=== PATIENT | female | born 1955 | race Caucasian/White ===

== ENCOUNTER 2024-05-21 18:18 | Emergency (ER) | payer MEDICARE, MEDICAID, SELFPAY ==
[2024-05-21 18:19] VITALS: BMI 24.0
[2024-05-21 18:35] VITALS: BP 169/97; PULSE 72; RESP 20; TEMP 36.6; O2SAT 95
--- NOTE | 2024-05-21 18:45 | EKG_ITS ---
[facility] Test Date: 2024-05-21 Pat Name: FORTUNATO MONROY Department: Room: - Gender: Female [employer] Change [employer]erks Supervisor: : [id number] Requested By: Jaun Girard Order Number: [id number] Reading MD: Jaun Girard Measurements Intervals [place] Rate: 68 P: 81 [place]: 140 QRS: -24 QRSD: 94 T: 60 QT: 399 QTc: 425 Interpretive Statements SINUS RHYTHM BORDERLINE LEFT AXIS DEVIATION [QRS AXIS < -20] No previous ECG available for comparison /[email or web address]/[id number]
--- NOTE | 2024-05-21 18:45 | XR_ITS ---
Examination: CT abdomen with intravenous contrast CT pelvis with intravenous contrast 2-D coronal reconstructions 2-D sagittal reconstructions Date and time of exam:May 21, 20242002 hrs. Comparison May 25, 2023 Indications: Onset right-sided abdominal pain nausea vomiting beginning 2 weeks ago, history kidney stones. CTDI: vol (mGy) 10.6 DLP: (mGycm) 559 Technique: Multiple axial sections of the abdomen and pelvis have been obtained. 64 slice high-resolution scanner used. 3 mm axial sections have been obtained, post intravenous injection 60 cc [id number] 2-D sagittal, coronal reconstructions obtained. Low dose protocols were performed. One or more of the following dose reduction techniques were used; automated exposure control, adjustment of the mA and/or KV according to patient size, use of iterative reconstruction technique. Findings: No focal liver or splenic lesions No gallstones Pancreas is not enlarged Moderate right hydronephrosis secondary to 12 mm right ureteropelvic junction calculus Aorta normal size No bowel obstruction Normal appendix No diverticulitis Atrophic uterus No bladder calculi Total right hip arthroplasty Impression: Moderate right hydronephrosis secondary to 12 mm right ureteropelvic junction calculus
--- NOTE | 2024-05-21 18:47 | PD.EDRME ---
Rapid Medical Screening Exam RME Arrival date/time: 05/21/24 18:18 69-year-old female reports with complaints of abdominal pain that radiates to her back x 2 weeks Chief Complaint: Abdominal Pain Time Seen by Provider: 05/21/24 18:24 Vital signs: Vital Signs Temperature 97.8 F 05/21/24 18:35 Pulse Rate 72 05/21/24 18:35 Respiratory Rate 20 05/21/24 18:35 Blood Pressure 169/97 H 05/21/24 18:35 Pulse Oximetry (%) 95 05/21/24 18:35 Oxygen Delivery Method Room Air 05/21/24 18:35
[2024-05-21 19:36] LABS: Basophils % (Auto) 0 % (0-2.5); Eosinophils % (Auto) 0 % (0-10); Hematocrit 43.3 % (36.0-46.0); Hemoglobin 14.2 g/dL (12.0-16.0); Immature Granulocytes % (Auto) 0 % (0-0); Immature Granulocytes Auto 0.06 Thou/mm3 (0.00-0.00); Lymphocytes # (Auto) 1.3 Thou/mm3 (1.0-4.8); Lymphocytes % (Auto) 9 % (10-50); Mean Corpuscular HGB Conc 32.8 g/dl (31.0-37.0); Mean Corpuscular Hemoglobin 27.2 pg (25.0-35.0); Mean Corpuscular Volume 83 fL (80-100); Monocytes # (Auto) 0.5 Thou/mm3 (0.0-0.8); Monocytes % (Auto) 4 % (0-12); Neutrophils # (Auto) 11.7 Thou/mm3 (1.8-7.7); Neutrophils % (Auto) 86 % (37-80); Nucleated Red Blood Cell % 0 /100 WBC (0); Platelet Count 327 Thou/mm3 (140-440); Red Blood Count 5.23 Miln/mm3 (4.00-5.20); White Blood Count 13.6 Thou/mm3 (3.6-11.0)
[2024-05-21 19:48] LABS: Beta Hydroxybutyrate 0.4 mmol/L (<0.6)
--- NOTE | 2024-05-21 19:54 | PD.EDADULT ---
ED General RME/HPI General Chief complaint: Abdominal Pain Stated complaint: RIGHT ABD PAIN, VOMITING Time Seen by Provider: 05/21/24 18:24 Arrival date/time: 05/21/24 18:18 CC: Nausea vomiting abdominal pain HPI ongoing intermittent for the past 2 weeks worse in the past 24 hours. Patient states she is a diabetic does not monitor her blood sugars because the doctor never told me to patient denies any diarrhea chest pain or shortness of breath. Abdominal pain is an 8 on a 10 scale radiates into her back no prior history of similar events. she is unable to recall all the medications she takes. RME / HPI RME / HPI narrative: 05/21/24 18:18 69-year-old female reports with complaints of abdominal pain that radiates to her back x 2 weeks Related Data Allergies Allergy/AdvReac Type Severity Reaction Status Date / Time No Known Allergies Allergy Verified 05/21/24 18:19 Review of Systems Review of Systems Narrative Review of Systems: GEN: No fever, no chills, no weight loss EYES: No discharge, no visual changes, no pain HEENT: No ear pain, no congestion, no sore throat PULM: No shortness of breath, no cough, no congestion CV: No chest pain, no dyspnea on exertion, no palpitations GI: + nausea, + vomiting, no diarrhea, + pain, no constipation : No frequency, no urgency, no dysuria MUSC/SKEL: No joint pain, no back pain SKIN: No rash PSYCH: No hallucinations, no depression HEME/LYMPH: No easy bleeding or bruising tendencies NEURO: No weakness, no headache Past Medical History Past Medical History NEUROLOGIC: Negative Seizures CARDIAC: Positive Hypercholesterolemia; Negative Cardiac Disorders or Congestive Heart Failure RESPIRATORY: Negative Chronic Obstructive Pulmonary Disease (COPD) or Asthma GENITOURINARY: Negative Renal Disease MUSCULOSKELETAL: Positive Arthritis and Fibromyalgia ENDOCRINE: Positive Diabetes Mellitus Type 2; Negative Diabetes Mellitus Type 1 HEMATOLOGIC: Negative Sickle Cell Disease PSYCHO/SOCIAL: Positive Depression and Post Traumatic Stress Disorder OTHER HISTORY: Negative Blood Transfusions, Blood Transfusion Reaction or Anesthesia Reactions Surgical History SURGICAL: Positive Tonsillectomy Social History SMOKING STATUS: Never smoker ED Exam Narrative Physical exam: [General: Obese in mild discomfort but not in any acute distress Head normocephalic HEENT: Within acceptable limits Neck is supple nontender Chest equal chest rise nontender to palpation Respiratory: Clear to auscultation no wheezes crackles or rubs CV: Rate rhythm is regular no murmurs rubs or clicks Abdomen is distended secondary to body habitus soft diffuse tenderness throughout no rebound tenderness no reflexive guarding. Back: Left CVA tenderness no right CVA tenderness, no spinous process tenderness from cervical spine thoracic and lumbar spine Skin: Intact no petechiae rash induration ulceration or crepitus Extremities: Moving all extremity against resistance cap refill less than 2 seconds neurosensory intact Neuro: Awake alert oriented x3 Glascow coma 15 no focal deficits] Course Course Course Narrative: Patient case presented to Dr. Whitney at [facility], the urologist, agrees to accept the patient for admission. Patient is in agreement with the transfer. Quality Measures none Orders Category Date Time Status CT Screening NOW Care 05/21/24 18:45 Active EKG (ED ONLY) *Do not use* NOW Care 05/21/24 18:[address] abdomen pelvis w con Stat Exams 05/21/24 18:45 Completed EKG (ED Only) Stat Exams 05/21/24 18:45 Draft Beta Hydroxybutyrate Stat Lab 05/21/24 19:14 Completed CBC Stat Lab 05/21/24 19:14 Completed CMP [Comprehensive Metabolic Panel] Stat Lab 05/21/24 19:14 Completed Lipase Stat Lab 05/21/24 19:14 Completed UA, C/S IF [Urinalysis, C/S if Indicated] Stat Lab 05/21/24 20:30 Completed Ketorolac Inj [Toradol Inj] Med 05/21/24 21:33 Discontinued 30 mg IVP X1 ONE Morphine Inj Med 05/21/24 18:45 Discontinued 2 mg IVP X1 ONE Morphine Inj Med 05/21/24 21:34 Discontinued 4 mg IVP X1 ONE Ondansetron Inj [Zofran Inj] Med 05/21/24 18:45 Discontinued 4 mg IV X1 ONE Sodium Chloride 0.9% 1000 ml [Ns] 1,000 ml Med 05/21/24 19:50 Active IV 125 mls/hr Sodium Chloride 0.9% 1000 ml [Ns] 1,000 ml Med 05/21/24 19:50 Discontinued IV 999 mls/hr Vital Signs Vital signs: Vital Signs Temperature 97.8 F 05/21/24 18:35 Pulse Rate 72 05/21/24 18:35 Respiratory Rate 20 05/21/24 18:35 Blood Pressure 169/97 H 05/21/24 18:35 Pulse Oximetry (%) 95 05/21/24 18:35 Oxygen Delivery Method Room Air 05/21/24 18:35 [facility] Patient data External records reviewed:: [facility] previous records Clinical information provided by:: patient Social determinants that could affect healthcare access:: none Patient has the following chronic illnesses:: Diabetes hypertension hyperlipidemia How is presenting disease/condition affected by chronic disease/condition?: exacerbated by Evaluation data The following diagnostics were reviewed and interpreted by me:: lab results, radiology exam(s) and EKG tracing(s) Lab and/or radiology exams considered but not ordered:: EKG performed at 1853 shows a ventricular rate of 68 NH interval 140 QRS of 94 QTc of 416 is normal sinus rhythm left axis deviation baseline wander. CBC shows a leukocytosis of 13.5 no anemia thrombocytopenia CMP shows no acute electrolyte imbalances renal impairment transaminitis or T. bili elevation CT of the abdomen pelvis showed the patient has a 1.2 cm urolithiasis at the ureteropelvic junction with moderate hydro nephrosis Interpretation Summary: Hydroureter hydronephrosis urolithiasis Medications Medications considered but not ordered:: None Medication administrations:: Medication Administration History Sodium Chloride (Ns) 1,000 mls @ 125 mls/hr IV .Q8H VIET Stop: 06/20/24 19:49 Last Admin: 05/21/24 20:17 Dose: 125 mls/hr Documented By: MELANIE Discontinued Medications Sodium Chloride (Ns) 1,000 mls @ 999 mls/hr IV .Q1H1M ONE Stop: 05/21/24 20:50 Last Infusion: 05/21/24 21:15 Dose: Infused Documented By: Admin: 05/21/24 20:15 Dose: 999 mls/hr Documented By: MELANIE Ketorolac Tromethamine (Ketorolac Inj 30 Mg/Ml Vial) 30 mg IVP X1 ONE Stop: 05/21/24 21:34 Last Admin: 05/21/24 21:42 Dose: 30 mg Documented By: MELANIE Morphine Sulfate (Morphine Sulf Inj 10 Mg/Ml Vial) 2 mg IVP X1 ONE Stop: 05/21/24 18:46 Last Admin: 05/21/24 20:16 Dose: 2 mg Documented By: MELANIE Morphine Sulfate (Morphine Sulf Inj 10 Mg/Ml Vial) 4 mg IVP X1 ONE Stop: 05/21/24 21:35 Last Admin: 05/21/24 21:43 Dose: 4 mg Documented By: MELANIE Ondansetron HCl (Ondansetron Inj 2 Mg/Ml Inj 2 Ml) 4 mg IV X1 ONE; Protocol Stop: 05/21/24 18:46 Last Admin: 05/21/24 20:16 Dose: 4 mg Documented By: MELANIE None Consultations Consultation(s) initiated? (list below): Yes Diagnosis Differential Diagnosis ED Complaint MDM: Urolithiasis hydroureter hydronephrosis Most likely diagnosis given after review of the tests above:: Urolithiasis hydroureter hydronephrosis Admission Indicated Admission indicated?: indicated Explain why admission is indicated or not indicated:: Transfer Admission Request Was there a request for admission?: No Disposition Plan Disposition Plan: Transfer Medical Decision Making Differential Diagnosis Differential Diagnosis: Urolithiasis hydroureter hydronephrosis Lab Data 05/21/24 19:14 05/21/24 19:14 Labs: Lab Results 05/21/24 05/21/24 Range/Units 19:14 20:30 WBC 13.6 H (3.6-11.0) Thou/mm3 RBC 5.23 H (4.00-5.20) Miln/mm3 Hgb 14.2 (12.0-16.0) g/dL Hct 43.3 (36.0-46.0) % MCV 83 (80-100) fL MCH 27.2 (25.0-35.0) pg MCHC 32.8 (31.0-37.0) g/dl RDW Std Deviation 41.0 (36.4-46.3) fL Plt Count 327 (140-440) Thou/mm3 Neut % (Auto) 86 H (37-80) % Lymph % (Auto) 9 L (10-50) % [place] % (Auto) 4 (0-12) % Eos % (Auto) 0 (0-10) % Baso % (Auto) 0 (0-2.5) % Neut # (Auto) 11.7 H (1.8-7.7) Thou/mm3 Lymph # (Auto) 1.3 (1.0-4.8) Thou/mm3 [place] # (Auto) 0.5 (0.0-0.8) Thou/mm3 Eos # (Auto) 0.0 (0.0-0.5) Thou/mm3 Baso # (Auto) 0.0 (0.0-0.2) Thou/mm3 Immature Gran # (Auto) 0.06 H (0.00-0.00) Thou/mm3 Absolute Nucleated RBC 0.00 (0.00-0.00) Thou/mm3 Immature Gran % 0 (0-0) % Nucleated RBC % 0 (0) /100 WBC Sodium 137 (136-145) mMol/L Potassium 3.7 (3.4-5.1) mMol/L Chloride 100 (98-107) mMol/L Carbon Dioxide 27.0 (20.0-31.0) mMol/L Anion Gap 10 (7-16) BUN 13 (9-23) mg/dL Creatinine 0.7 (0.6-1.3) mg/dL Estim Creat Clear Calc 66.4 (>60) mL/min eGFR > 60 (60 - ) See Note BUN/Creatinine Ratio 19 (12-20) Ratio Glucose 186 H (74-106) mg/dL Calculated Osmolality 278 (275-295) Calcium 9.8 (8.3-10.6) mg/dL Corrected Calcium 9.8 (8.5-10.1) mg/dL Total Bilirubin 0.3 (0.3-1.2) mg/dL AST 20 (0-34) U/L ALT 23 (10-49) U/L Alkaline Phosphatase 81 (46-116) U/L Total Protein 7.7 (5.7-8.2) gm/dL Albumin 5.1 H (3.4-4.8) gm/dL Globulin 2.6 (2.3-3.5) gm/dL Albumin/Globulin Ratio 2.0 (1.2-2.2) Lipase 29 (12-53) U/L Beta-Hydroxybutyrate/Acetoacetate 0.4 (<0.6) mmol/L Ur Collection Type Clean Catch Urine Color Yellow (Lt Yel-Yel) Urine Clarity Clear (Clear/Hazy) Urine pH 6.0 (5.0-7.0) Ur Specific [place] 1.049 H (1.001-1.035) Urine Protein 2+ A (Neg - Trace) Urine Glucose (UA) Negative (Negative) Urine Ketones 2+ A (Negative) Urine Blood 1+ A (Negative) Urine Nitrite Negative (Negative) Urine Bilirubin Negative (Negative) Urine Urobilinogen (Auto) Negative (0.0-1.0) mg/dL Ur Leukocyte Esterase Positive (Negative) Urine RBC 123 H (0-3) /hpf Urine WBC 7 H (0-5) /hpf Ur Squamous Epith Cells 1 (0-5) /hpf Urine Bacteria Rare (None) Hyaline Casts < 1 (0-1) /hpf Ur Culture Indicated? Not Indicated Discharge Plan Plan Patient Disposition: [facility] Pt Being Transferred to: [facility] Service Needed for Transfer: Urology Patient condition on transfer: Stable Prescriptions/Referrals Referrals: Enrique ([facility])Chadwick FNP [Primary Care Provider] - In 1 week Problem List Clinical Impression: Urolithiasis, Hydroureter, Hydronephrosis, Flank pain Patient/Caregiver Discharge Instructions Print Language: Norwegian Stand Alone Forms: Alejandra Award Info., Patient Portal Info Letter JOHN/KASHIF Supervising Physician JOHN/KASHIF Supervising Physician: Linus Pinzon ENP
[2024-05-21 19:57] LABS: Alanine Aminotransferase 23 U/L (10-49); Albumin, Serum 5.1 gm/dL (3.4-4.8); Alkaline Phosphatase 81 U/L (46-116); Anion Gap 10 (7-16); Aspartate Amino Transferase 20 U/L (0-34); BUN/Creatinine Ratio 19 Ratio (12-20); Bilirubin,Total 0.3 mg/dL (0.3-1.2); Blood Urea Nitrogen 13 mg/dL (9-23); Calcium 9.8 mg/dL (8.3-10.6); Calcium (Corrected) 9.8 mg/dL (8.5-10.1); Chloride 100 mMol/L (98-107); Creatinine (Component) 0.7 mg/dL (0.6-1.3); Estimated Creatinine Clearance 66.4 mL/min (>60); Globulin 2.6 gm/dL (2.3-3.5); Glucose 186 mg/dL (74-106); Lipase 29 U/L (12-53); Osmolality,Calculated 278 (275-295); Potassium 3.7 mMol/L (3.4-5.1); Sodium 137 mMol/L (136-145); Total Protein 7.7 gm/dL (5.7-8.2); eGFR > 60 See Note
[2024-05-21] MEDS: SODIUM CHLORIDE 0.9% 1000 ML 1,000 ML 999 ML IV (20:15)
[2024-05-21] MEDS: MORPHINE SULF INJ 10 MG/ML VIAL 2 MG IVP (20:16)
[2024-05-21] MEDS: ONDANSETRON INJ 2 MG/ML INJ 2 ML 4 MG IV (20:16)
[2024-05-21] MEDS: SODIUM CHLORIDE 0.9% 1000 ML 1,000 ML 125 ML IV (20:17)
[2024-05-21 20:52] LABS: Collection Type, Urine Clean Catch
[2024-05-21 21:09] LABS: Bacteria,Urine Rare; Bilirubin,Urine Negative (Negative); Blood,Urine 1+ (Negative); Clarity,Urine Clear (Clear/Hazy); Color,Urine Yellow (Lt Yel-Yel); Culture Indicated,Urine Not Indicated; Glucose, Urine Negative (Negative); Hyaline Casts,Urine < 1 /hpf (0-1); Ketones,Urine 2+ (Negative); Leukocyte Esterase,Urine Positive (Negative); Nitrite,Urine Negative (Negative); Protein,Urine 2+ (Neg - Trace); RBC,Urine 123 /hpf (0-3); Specific Gravity,Urine 1.049 (1.001-1.035); Squamous Epithelial Cell,Urine 1 /hpf (0-5); Urobilinogen,Urine Negative mg/dL (0.0-1.0); WBC,Urine 7 /hpf (0-5)
[2024-05-21 21:18] VITALS: BP 180/90; PULSE 80; RESP 19; TEMP 37.1; O2SAT 95
--- NOTE | 2024-05-21 21:28 | PC.NURSE ---
Pt requesting more pain meds. Provider aware.
[2024-05-21] MEDS: KETOROLAC INJ 30 MG/ML VIAL IVP (21:42)
[2024-05-21] MEDS: MORPHINE SULF INJ 10 MG/ML VIAL 4 MG IVP (21:43)
--- NOTE | 2024-05-21 22:29 | PC.NURSE ---
Pt feeling much better. pain relieved from Morphine and toradol.
--- NOTE | 2024-05-21 22:51 | PC.NURSE ---
THIS PT IS ACCEPTED TO ER BY DR. DE LA CRUZ. SHEELA WAS THE FACILITY REP I SPOKE WITH FOR ACCEPTING INFORMATION AND THE NUMBER FOR REPORT IS [phone].
[2024-05-22 00:01] VITALS: BP 142/123; PULSE 96; RESP 18; TEMP 37.1; O2SAT 94
[2024-05-22 01:00] VITALS: BP 138/79; PULSE 95; RESP 18; TEMP 37.2; O2SAT 96
== END 2024-05-22 01:05 | disposition short-term general hospital (02) ==
PROVIDERS: Physician Assistant; Emergency Provider Emergency Medicine; PCP Nurse Practitioner Family
DX: N13.2 Hydronephrosis with renal and ureteral calculous obstruction (principal); R94.31 Abnormal electrocardiogram [ECG] [EKG]; I10 Essential (primary) hypertension; E78.00 Pure hypercholesterolemia, unspecified
CPT/HCPCS: 36415; 74177; 80053; 81001; 82010; 83690; 85025; 93005; 96374; 96375; 96376; 99285; A4649; J1885; J2270; J2405; J7030; Q9967

== ENCOUNTER → 2024-06-28 | Outpatient (CLI) | payer OTHER, SELFPAY ==
[2024-06-28 12:52] LABS: Collection Type, Urine Clean Catch
[2024-06-28 13:14] LABS: Basophils % (Auto) 1 % (0-2.5); Eosinophils # (Auto) 0.4 Thou/mm3 (0.0-0.5); Eosinophils % (Auto) 5 % (0-10); Hematocrit 40.8 % (36.0-46.0); Hemoglobin 13.3 g/dL (12.0-16.0); Immature Granulocytes % (Auto) 0 % (0-0); Immature Granulocytes Auto 0.02 Thou/mm3 (0.00-0.00); Lymphocytes # (Auto) 2.4 Thou/mm3 (1.0-4.8); Lymphocytes % (Auto) 29 % (10-50); Mean Corpuscular HGB Conc 32.6 g/dl (31.0-37.0); Mean Corpuscular Hemoglobin 26.8 pg (25.0-35.0); Mean Corpuscular Volume 82 fL (80-100); Monocytes # (Auto) 0.5 Thou/mm3 (0.0-0.8); Monocytes % (Auto) 6 % (0-12); Neutrophils # (Auto) 4.9 Thou/mm3 (1.8-7.7); Neutrophils % (Auto) 60 % (37-80); Nucleated Red Blood Cell % 0 /100 WBC (0); Platelet Count 366 Thou/mm3 (140-440); RDW Standard Deviation 40.8 fL (36.4-46.3); Red Blood Count 4.97 Miln/mm3 (4.00-5.20); White Blood Count 8.2 Thou/mm3 (3.6-11.0)
[2024-06-28 13:21] LABS: Glucose Estimated Average 166 mg/dL (80-131); Hemoglobin A1C 7.4 % Hgb (4.8-6.0)
[2024-06-28 13:26] LABS: Alanine Aminotransferase 13 U/L (10-49); Albumin, Serum 4.6 gm/dL (3.4-4.8); Alkaline Phosphatase 81 U/L (46-116); Anion Gap 9 (7-16); Aspartate Amino Transferase 14 U/L (0-34); BUN/Creatinine Ratio 26 Ratio (12-20); Bilirubin,Total 0.3 mg/dL (0.3-1.2); Blood Urea Nitrogen 13 mg/dL (9-23); Calcium 10.9 mg/dL (8.3-10.6); Calcium (Corrected) 10.9 mg/dL (8.5-10.1); Carbon Dioxide 30.4 mMol/L (20.0-31.0); Chloride 102 mMol/L (98-107); Creatinine (Component) 0.5 mg/dL (0.6-1.3); Globulin 2.3 gm/dL (2.3-3.5); Glucose 137 mg/dL (74-106); Osmolality,Calculated 283 (275-295); Potassium 4.2 mMol/L (3.4-5.1); Sodium 141 mMol/L (136-145); Total Protein 6.9 gm/dL (5.7-8.2); eGFR > 60 See Note
[2024-06-28 13:42] LABS: Bilirubin,Urine Negative (Negative); Blood,Urine 3+ (Negative); Clarity,Urine Turbid (Clear/Hazy); Color,Urine Yellow (Lt Yel-Yel); Glucose, Urine Negative (Negative); Ketones,Urine Negative (Negative); Leukocyte Esterase,Urine Positive (Negative); Nitrite,Urine Negative (Negative); Protein,Urine 3+ (Neg - Trace); RBC,Urine 2099 /hpf (0-3); Squamous Epithelial Cell,Urine 1 /hpf (0-5); Urobilinogen,Urine Negative mg/dL (0.0-1.0); WBC,Urine 48 /hpf (0-5)
== END | disposition home or self-care (01) ==
LOC: COPL 11:59
PROVIDERS: PCP Physician Assistant; Referring Provider Physician Assistant; Visit Provider Physician Assistant
DX: N39.3 Stress incontinence (female) (male) (principal)
CPT/HCPCS: 36415; 80053; 81001; 83036; 85025

== ENCOUNTER → 2024-07-19 | Outpatient (CLI) | payer MEDICARE, SELFPAY ==
--- NOTE | 2024-07-19 16:09 | XR_ITS ---
Examination: PA lateral chest 2 views TECHNIQUE: Upright PA lateral chest 2 views Exam date and time: July 19, 2024 at 1628 hours INDICATIONS: History pneumonia 2 weeks ago. FINDINGS: Normal heart size Chronic wedging lower dorsal vertebral body No pneumonia or pulmonary edema Prominent osteopenia IMPRESSION: No pneumonia identified
== END | disposition home or self-care (01) ==
PROVIDERS: PCP Physician Assistant; Referring Provider Physician Assistant; Visit Provider Physician Assistant
DX: J18.9 Pneumonia, unspecified organism (principal)
CPT/HCPCS: 71046

== ENCOUNTER 2024-10-02 10:15 | Day surgery (SDC) | payer OTHER, SELFPAY ==
[2024-10-01 11:05] VITALS: BMI 25.9
[2024-10-01 12:48] LABS: Basophils % (Auto) 1 % (0-2.5); Eosinophils # (Auto) 0.3 Thou/mm3 (0.0-0.5); Eosinophils % (Auto) 4 % (0-10); Hematocrit 41.7 % (36.0-46.0); Hemoglobin 13.5 g/dL (12.0-16.0); Immature Granulocytes % (Auto) 0 % (0-0); Immature Granulocytes Auto 0.02 Thou/mm3 (0.00-0.00); Lymphocytes # (Auto) 2.2 Thou/mm3 (1.0-4.8); Lymphocytes % (Auto) 27 % (10-50); Mean Corpuscular HGB Conc 32.4 g/dl (31.0-37.0); Mean Corpuscular Hemoglobin 27.2 pg (25.0-35.0); Mean Corpuscular Volume 84 fL (80-100); Monocytes # (Auto) 0.4 Thou/mm3 (0.0-0.8); Monocytes % (Auto) 5 % (0-12); Neutrophils # (Auto) 5.2 Thou/mm3 (1.8-7.7); Neutrophils % (Auto) 64 % (37-80); Nucleated Red Blood Cell % 0 /100 WBC (0); Platelet Count 248 Thou/mm3 (140-440); RDW Standard Deviation 44.1 fL (36.4-46.3); Red Blood Count 4.96 Miln/mm3 (4.00-5.20); White Blood Count 8.1 Thou/mm3 (3.6-11.0)
[2024-10-01 13:13] LABS: Alanine Aminotransferase 10 U/L (10-49); Albumin, Serum 4.7 gm/dL (3.4-4.8); Albumin/Globulin Ratio 1.7 (1.2-2.2); Alkaline Phosphatase 100 U/L (46-116); Anion Gap 7 (7-16); Aspartate Amino Transferase 16 U/L (0-34); BUN/Creatinine Ratio 17 Ratio (12-20); Bilirubin,Total 0.2 mg/dL (0.3-1.2); Blood Urea Nitrogen 12 mg/dL (9-23); Calcium 9.9 mg/dL (8.3-10.6); Calcium (Corrected) 9.9 mg/dL (8.5-10.1); Carbon Dioxide 30.6 mMol/L (20.0-31.0); Chloride 106 mMol/L (98-107); Creatinine (Component) 0.7 mg/dL (0.6-1.3); Estimated Creatinine Clearance 70.5 mL/min (>60); Globulin 2.8 gm/dL (2.3-3.5); Glucose 182 mg/dL (74-106); Osmolality,Calculated 291 (275-295); Sodium 144 mMol/L (136-145); Total Protein 7.5 gm/dL (5.7-8.2); eGFR > 60 See Note
--- NOTE | 2024-10-01 15:05 | SUR.PREOP ---
Voice Message left for pt to come in tomorrow at 1100 for surgey
--- NOTE | 2024-10-01 15:09 | SUR.PREOP ---
Pt called back, confirm to come in tomorrow at 1100.
[2024-10-02] VITALS (7 sets, daily range): BP systolic 122–153; BP diastolic 71–92; PULSE 78–94; RESP 14–20; TEMP 36.3–36.6; O2SAT 93–98; BMI 25.9
--- NOTE | 2024-10-02 10:15 | CHAP ---
Patient was called in early. I met with her in the hallway and we talked briefly and had prayer together for her procedure.
[2024-10-02] MEDS: RINGERS LACTATED 1000 ML 1,000 ML 20 ML IV (11:11)
--- NOTE | 2024-10-02 12:34 | PD.SUROPNT ---
Date of Procedure 10/02/24 Pre Op Diagnosis Left shoulder soft tissue mass Post Op Diagnosis Left shoulder intramuscular soft tissue mass Procedure Excision of intramuscular soft tissue mass from left shoulder Findings An approximately 4 cm intramuscular lipomatous mass of left shoulder Procedure Description Patient brought into the operating room and spine position. After administration of general tracheal anesthesia, patient was placed in right lateral decubitus position. Her left shoulder was prepped and draped in standard surgical manner. She was noted to have a palpable mass on the anterior surface of the left shoulder. After administration of local anesthesia an approximately 4 cm elliptical incision was made and dissection was deepened into soft tissue. The mass was palpated and noted to be intramuscular. The fascia was opened and the muscle was circumferentially dissected off underlying muscle and excised. The mass was measuring to be approximately 4 cm in diameter, was lipomatous in nature. The wound was washed and irrigated and hemostasis achieved using electrocautery. Fascia reapproximated with interrupted sutures using 2-0 Vicryl. Subcutaneous tissue closed with interrupted sutures using 3-0 Vicryl and the incision was closed with 4-0 Monocryl in subcuticular fashion. Dermabond applied. Patient tolerated procedure well. She was placed in supine position and extubated. She was breathing spontaneously and without difficulty and was transferred to postanesthesia care in stable condition. Instruments, needles and sponge counts were reported to be correct x 2. Anesthesia GETA and local Pathology / specimen Other (Left shoulder intramuscular soft tissue mass) Estimated Blood Loss 2 Condition Stable Disposition PACU Surgeon Lis Perez MD Surgical Staff Operation Date: 10/02/24 13:15 Case Staff Anesthesiologist: Dg Crain RN First Assistant: Humaira Boland
--- NOTE | 2024-10-02 12:41 | SUR.PHASEI ---
pt received to [facility]. vss. breathing even and unlabored. oral air way out on arrival. pt asking for clothing stating shes ready to go home. dermabond dressing to left shoulder cdi. report from nurse hodge and dr byrne.
--- NOTE | 2024-10-02 12:56 | SUR.PHASEI ---
1256: Report received from Mara LUND. Pt. AAOx4, vitals stable, breathing unablored, no complaint of pain or nausea, dressing to left shoulder CDI, no active bleed noted.
--- NOTE | 2024-10-02 12:56 | SUR.PHASEI ---
report to nurse sangeetha. pt awake and sitting up in [facility]. vss. dressing cdi. breathing even and unlabored.
--- NOTE | 2024-10-02 13:30 | SUR.PHASEII ---
1330: Pt. AAOx4, vitals stable, breathing unlabored, no complaint of pain or nausea, dressing to left shoulder CDI, no active bleed noted, pt. tolerated sips of soda well, pt. ambulated to wheelchair with steady gait and no assist, no complications. Gave discharge instructions to the pt. and her ride, both verbalized understanding and had no further questions. Pt. left with all personal belongings.
== END 2024-10-02 13:30 | disposition home or self-care (01) ==
PROVIDERS: Anesthesiology; PCP Physician Assistant; Referring Provider Surgery; Visit Provider Surgery
PROC: (CPT 23076; principal; 2024-10-02 13:00)
DX: D17.22 Benign lipomatous neoplasm of skin and subcutaneous tissue of left arm (principal)
CPT/HCPCS: 23076; 36415; 80053; 85025; A4217; A4649; J0690; J1100; J1885; J2250; J2405; J2704; J3010; J3490; J7120